=== PATIENT | male | born 1980 | race Caucasian/White ===

== ENCOUNTER 2019-01-06 06:30 | Day surgery (SDC) | payer OTHER ==
[2019-01-06] VITALS (15 sets, daily range): BP systolic 107–126; BP diastolic 42–68; PULSE 55–62; RESP 16–19; Ht 188 cm; Wt 103.5 kg
[~2019-01-06] VITALS: Ht 188 cm; Wt 103.5 kg
[~2019-01-06 06:30] MED LIST: SOD CHLORIDE 0.9% 1,000 ML IV SCH
[2019-01-06] MEDS ORDERED: ACETAMINOPHEN 500 MG TAB PO ONE (07:00)
[2019-01-06] MEDS ORDERED: BUPIVACAINE 0.5%/EPI (SDV) 30 ML INJ ONE (09:04)
--- NOTE | 2019-01-06 09:12 | PREAC ---
Date/Time of Note Date/Time of Note DATE: 01/06/19 TIME: 09:11 Anesthesia Eval and Record Evaluation Time Pre-Procedure Interview DATE: 01/06/19 TIME: 09:11 Age 38 Sex male NPO: 8 hrs Preoperative diagnosis R breast mass Planned procedure R breast mass excision Past Medical History Past Medical History: None Surgery & Anesthesia Issues No known issue Meds Anticoagulation: No Beta Ludy within 24 hr: No Reason Beta Ludy not given: Pt. not on B-Ludy No Active Prescriptions or Reported Meds Current Medications Sodium Chloride 1,000 ml @ 75 mls/hr [id number] IV ; Start 01/06/19 at 06:00; Stop 01/06/19 at 18:00 Meds reviewed: Yes Allergies Coded Allergies: Penicillins (Verified Allergy, Unknown, 01/06/19) Allergies Reviewed: Yes Labs/Studies Labs Reviewed: Reviewed by anesthesiologist Result Diagram: 01/06/19 0800 01/06/19 0800 Laboratory Tests 01/06/19 08:00 test: Negative Pre-procedure Exam Last vitals Vital Signs Date Temp Pulse Resp B/P (MAP) Pulse Ox O2 O2 Flow FiO2 Time Delivery Rate 01/06/19 98.0 55 16 120/63 96 Room Air 08:28 (82) Airway: Adequate mouth opening, Adequate thyromental dist Mallampati: Mallampati II Teeth: Normal Lung: Normal Heart: Normal ASA Physical Status ASA physical status: 1 Emergency: None Planned Anesthetic General/MAC: LMA Pre-operative Attestations Prior to commencing anesthesia and surgery, the patient was re-evaluated, there was verification of: *The patient's identity *The results of appropriate recent lab work and preoperative vital signs *The above evaluation not changing prior to induction *Anesthetic plan, risk benefits, alternative and complications discussed with patient/family; questions answered; patient/family understands, accepts and wishes to proceed. KERRY LAU January 06, 2019 09:12
[2019-01-06] MEDS ORDERED: CLINDAMYCIN 900 MG/D5W (PMX) 50 ML IVPB ONE (09:17)
[2019-01-06] MEDS ORDERED: MIDAZOLAM 1 MG/ML 2 ML INJ ONE (09:17)
[2019-01-06] MEDS ORDERED: PROPOFOL 40 ML ONE (09:17)
[2019-01-06] MEDS ORDERED: FENTAnyl 50 MCG/ML VIAL ONE (09:19)
[2019-01-06] MEDS ORDERED: ONDANSETRON 4 MG INJ ONE (09:19)
[2019-01-06] MEDS ORDERED: FAMOTIDINE 20 MG INJ ONE (09:19)
[2019-01-06] MEDS ORDERED: ALBUTEROL 0.083% (NEB) 2.5 MG/3 ML AMP HHN PRN (09:30)
[2019-01-06] MEDS ORDERED: FENTAnyl 50 MCG/ML VIAL IV PRN ×2 (09:30)
[2019-01-06] MEDS ORDERED: DIPHENHYDRAMINE 50 MG INJ IV PRN (09:30)
[2019-01-06] MEDS ORDERED: ONDANSETRON 4 MG INJ IV PRN (09:30)
[2019-01-06] MEDS ORDERED: MEPERIDINE 25 MG INJ IV PRN (09:30)
[2019-01-06] MEDS ORDERED: LABETALOL HCL 20MG INJ IV PRN (09:30)
[2019-01-06] MEDS ORDERED: morphine 2 MG INJ IV PRN ×2 (09:30)
[2019-01-06] MEDS ORDERED: OXYCODONE/ACETAMINOPHEN (5/325) TAB PO PRN ×2 (09:30)
[2019-01-06] MEDS ORDERED: HYDROmorphONE 1 MG/5 ML IV SYRINGE IV PRN ×3 (09:30)
--- NOTE | 2019-01-06 10:24 | SIPON ---
Date/Time of Note Date/Time of Note DATE: 01/06/19 TIME: 10:22 Operative Report Preoperative Diagnosis Right subareolar mass Postoperative Diagnosis Same Operation/Procedure Performed Excision of right subareolar mass Surgeon see signature line actuarial assistant Dr Wren Anesthesia: general Estimated blood loss: 0 - 10 ml's Transfusion Required none Specimen Right subareolar breast mass Grafts/Implants none Complications none AIN ERVIN MD January 06, 2019 10:24
--- NOTE | 2019-01-06 10:30 | PAC ---
Date/Time of Note Date/Time of Note DATE: 01/06/19 TIME: 10:29 Post-Anesthesia Notes Post-Anesthesia Note Last documented vital signs Vital Signs Date Temp Pulse Resp B/P Pulse Ox O2 O2 Flow FiO2 Time (MAP) Delivery Rate 01/06/19 98.0 98.2 55 61 16 16 120/63 96 100 Room 08:28 102 (82) 116 Air face 6 /42 mask 8L Activity: WNL Respiratory function: WNL Cardiovascular function: WNL Mental status: Baseline Pain reasonably controlled: Yes Hydration appropriate: Yes Nausea/Vomiting absent: Yes KERRY LAU January 06, 2019 10:30
--- NOTE | 2019-01-06 11:25 | OPR ---
DATE OF OPERATION: 01/06/2019 PREOPERATIVE DIAGNOSIS: Right subareolar breast mass. POSTOPERATIVE DIAGNOSIS: Right subareolar breast mass. OPERATION PERFORMED: Excision of right subareolar breast mass. ANESTHESIA: General. ANESTHESIOLOGIST: Nurse car changer, Cecilia Nam. SURGEON: Greg Elizabeth MD MARKET RESEARCH EXECUTIVE: Kathleen Wren MD INDICATIONS FOR PROCEDURE: The patient is a 38-year-old male who presented with a somewhat tender ma ss just under his right nipple. Ultrasound revealed findings consistent with a benign lesion. The p atient requested excision. He consented and was scheduled for surgery. DESCRIPTION OF PROCEDURE: The patient was brought to the operating theater, placed under general ane sthesia. The right chest and breast was prepped and draped in usual sterile fashion. A periareolar incision was made from the 3 o'clock location through the 12 o'clock location to the 9 o'clock locati on. Subcutaneous tissue was dissected with cautery. The skin edges were then elevated with skin jaziel ks and wide circumferential dissection of the palpable mass then took place. Specimen was removed an d sent for permanent pathologic analysis. The wound was irrigated. Minimal bleeding was controlled with cautery, and the skin was then reapproximated with a deep dermal layer of 4-0 Vicryl sutures in interrupted fashion, followed by final skin approximation with 5-0 PDS sutures in subcuticular fashio n and Dermabond was applied. The patient tolerated procedure well. ESTIMATED BLOOD LOSS: Approximately 5 mL. COMPLICATIONS: There were no complications. DISPOSITION: The patient was transported in stable condition to the recovery room. Dictated By: GREG ELIZABETH MD TL/NTS Conf#: [id number] DID#: [id number] CC: KATHLEEN WREN MD;*EndCC*
== END 2019-01-06 12:21 | disposition home or self-care (01) ==
LOC: SDS 06:30
PROVIDERS: ATTEND Surgery Surgical Oncology
DX: D24.1 Benign neoplasm of right breast (principal); Z88.0 Allergy status to penicillin
CPT/HCPCS: 19120; 80053; 85025; 85610; 85730; J2250; J2405; J3010

== ENCOUNTER 2019-05-16 12:05 | Day surgery (SDC) | payer OTHER ==
[~2019-05-16] VITALS: Ht 188 cm; Wt 100.4 kg
[2019-05-16 14:13] VITALS: Ht 188 cm; Wt 100.4 kg
[2019-05-16 16:05] VITALS: BP 130/61; PULSE 49; RESP 18
[2019-05-16] MEDS ORDERED: GLYCOPYRROLATE 0.4 MG INJ ONE (17:00)
[2019-05-16] MEDS ORDERED: PROPOFOL 40 ML ONE (17:04)
[2019-05-16 17:45] VITALS: BP 99/51; PULSE 52; RESP 18
[2019-05-16 17:56] VITALS: BP 115/59; PULSE 50; RESP 16
== END 2019-05-16 21:51 | disposition home or self-care (01) ==
LOC: GIL 12:05
PROVIDERS: ATTEND Internal Medicine Gastroenterology
DX: D12.5 Benign neoplasm of sigmoid colon (principal); K64.8 Other hemorrhoids
CPT/HCPCS: 88305